=== PATIENT | male | born 1985 | race Caucasian/White ===

== ENCOUNTER 2021-03-15 15:59 | Emergency (ER) | payer OTHER ==
[~2021-03-15] VITALS: Ht 182.9 cm; Wt 74.8 kg
[~2021-03-15 15:59] MED LIST: ASPI325 PO; Flomax0.4 MG PO; HYDACE5 PO; IBUP400 PO; IBUP600 PO; KETO10 PO; META800 PO; NAPR220 PO; Naprosyn500 MG PO; Norco 5-325 Ta1 EACH PO; Percocet 10-321 EACH PO; Veetids 500500 MG PO
[2021-03-15] MEDS ORDERED: CYCL10 PO (16:26)
== END 2021-03-15 16:45 | disposition home or self-care (01) ==
LOC: ER 15:59
DX: S39.012A Strain of muscle, fascia and tendon of lower back, initial encounter (principal); F17.200 Nicotine dependence, unspecified, uncomplicated; Z88.5 Allergy status to narcotic agent; Z88.1 Allergy status to other antibiotic agents; Z91.013 Allergy to seafood; Z91.048 Other nonmedicinal substance allergy status; X50.0XXA Overexertion from strenuous movement or load, initial encounter
CPT/HCPCS: 96372; 99283-25; J1885

== ENCOUNTER 2023-04-09 11:14 | Day surgery (SDC) | payer OTHER ==
[~2023-04-09] VITALS: Ht 182.9 cm; Wt 70.6 kg
[~2023-04-09 11:14] MED LIST changes: +CYCL10 PO
--- NOTE | 2023-04-09 14:09 | NUR ---
04/09/23 1409 Jesu Luna BLOCK COMPLETE IN OR BY CHADWICK RODRIGUEZ CRNA. PATIENT TOLERATED WELL, VSS.
[2023-04-09 14:31] VITALS: BP 113/74
--- NOTE | 2023-04-09 14:57 | NUR ---
04/09/23 1457 Isa Rainey PT STATES PAIN IS TOLERABLE AND DENIES NAUSEA. PT STATES NO FURTHER QUESTIONS. IV DC'D WNL, CATH INTACT. PT TOLERATED IV DC WELL; SITE WRAPPED IN COBAN
== END 2023-04-09 14:58 | disposition home or self-care (01) ==
LOC: ORSCSDS 11:14
PROVIDERS: Orthopaedic Surgery
PROC: 01N50ZZ Release Median Nerve, Open Approach (ICD-10-PCS; principal; 2023-04-09 12:30)
DX: G56.03 Carpal tunnel syndrome, bilateral upper limbs (principal); Z87.891 Personal history of nicotine dependence
CPT/HCPCS: J0690; J2250; J3010; J7120

== ENCOUNTER 2023-07-02 12:03 | Day surgery (SDC) | payer OTHER ==
[~2023-07-02] VITALS: Ht 182.9 cm; Wt 69.9 kg
[~2023-07-02 12:03] MED LIST changes: +Lidocaine HCl/Pf 1% 5 ML VIAL ONE
[2023-07-02] MEDS ORDERED: Lactated Ringer's 1,000 ML IV ONE ×2 (12:56→14:03)
[2023-07-02] MEDS ORDERED: propofoL 50 ML IV ONE (13:21)
[2023-07-02] MEDS ORDERED: Midazolam HCl 1MG / ML 2ML Vial ONE (13:49)
[2023-07-02] MEDS ORDERED: Acetaminophen 500 MG Tab ONE (13:49)
[2023-07-02] MEDS ORDERED: CeFAZolin Sodium 2,000 MG VIAL ONE (14:02)
[2023-07-02] MEDS ORDERED: propofoL 20 ML IV ONE (14:03)
[2023-07-02] MEDS ORDERED: NS 50 ML IV ONE (14:03)
[2023-07-02] MEDS ORDERED: FAT EMULSION 20% IV ONE (14:16)
--- NOTE | 2023-07-02 14:28 | NUR ---
07/02/23 1428 Jesu Luna COMPLETE IN OR BY DR AMBRIZ. SITE CHECK, VSS.
[2023-07-02 15:01] VITALS: BP 111/81
== END 2023-07-02 15:13 | disposition home or self-care (01) ==
LOC: ORSCSDS 12:03
PROVIDERS: Orthopaedic Surgery
PROC: 01N50ZZ Release Median Nerve, Open Approach (ICD-10-PCS; principal; 2023-07-02 13:30)
DX: G56.02 Carpal tunnel syndrome, left upper limb (principal); Z87.891 Personal history of nicotine dependence
CPT/HCPCS: A9270; J0690; J2001; J2250; J2704; J7120

== ENCOUNTER 2024-05-18 15:26 | Emergency (ER) | payer OTHER ==
[~2024-05-18] VITALS: Ht 182.9 cm; Wt 72.6 kg
[~2024-05-18 15:26] MED LIST changes: -Lidocaine HCl/Pf 1% 5 ML VIAL ONE
[2024-05-18] MEDS ORDERED: PANT40 PO (15:45)
[2024-05-18 16:02] LABS: BASOPHILS ABSOLUTE AUTO 0.11 K/mm3 (0.00-0.23); BASOPHILS PERCENT AUTO 1 % (0-2); EOSINOPHILS ABSOLUTE AUTO 0.35 K/mm3 (0.00-0.68); EOSINOPHILS PERCENT AUTO 2 % (0-6); Hematocrit 44.3 % (37.0-53.0); Hemoglobin 14.5 g/dL (13.5-17.5); IMMATURE GRAN ABSOLUTE AUTO 0.05 K/mm3 (0.00-0.10); IMMATURE GRAN PERCENT AUTO 0 % (0-1); LYMPHOCYTES ABSOLUTE AUTO 2.51 K/mm3 (0.84-5.20); LYMPHOCYTES PERCENT AUTO 14 % (21-46); MONOCYTES ABSOLUTE AUTO 0.62 K/mm3 (0.16-1.47); MONOCYTES PERCENT AUTO 4 % (4-13); Mean Corpuscular HGB 26.8 pg (26.0-34.0); Mean Corpuscular HGB Conc 32.7 g/dL (31.5-36.5); Mean Corpuscular Volume 82 fL (80-100); Mean Platelet Volume 9.3 fL (9.1-12.4); NEUTROPHILS ABSOLUTE AUTO 14.04 K/mm3 (1.96-9.15); NEUTROPHILS PERCENT AUTO 79 % (41-73); Platelet Count 407 K/mm3 (150-400); RDW Coefficient Variation 13.3 % (11.7-14.2); RDW Standard Deviation 39.5 fL (35.1-46.3); Red Blood Cell Count 5.42 M/mm3 (4.30-5.90); White Blood Cell Count 17.68 K/mm3 (4.00-11.30)
[2024-05-18 16:21] LABS: Albumin, Blood 3.3 g/dL (3.4-5.0); Albumin/Globulin Ratio 0.9 (0.8-1.8); Bilirubin, Total 0.4 mg/dL (0.1-1.0); Bun/Creatinine Ratio 10.4 (12.0-20.0); Calcium, Blood 8.9 mg/dL (8.5-10.1); Creatinine, Blood 1.25 mg/dL (0.60-1.20); Globulin, Blood 3.8 g/dL (2.2-4.0); Potassium, Blood 4.1 mmol/L (3.5-5.5); Total Protein, Blood 7.1 g/dL (6.4-8.2)
[2024-05-18 18:26] VITALS: BP 125/86
[2024-05-18] MEDS ORDERED: Lidocaine 2% Viscous Soln 15 ML UDC PO ONE (19:20)
[2024-05-18] MEDS ORDERED: Famotidine 20 MG Tab PO ONE (19:20)
[2024-05-18] MEDS ORDERED: Mag Hydrox/AL Hydrox/Simeth 30 ML UDC PO ONE (19:20)
[2024-05-18] MEDS ORDERED: NS 1,000 ML IV SCH (19:25)
== END 2024-05-18 22:43 | disposition home or self-care (01) ==
LOC: ER 15:26
PROVIDERS: Physician Assistant
DX: R10.10 Upper abdominal pain, unspecified (principal); G89.29 Other chronic pain; Z91.013 Allergy to seafood; Z88.1 Allergy status to other antibiotic agents; Z88.5 Allergy status to narcotic agent; Z88.8 Allergy status to other drugs, medicaments and biological substances; F17.200 Nicotine dependence, unspecified, uncomplicated
CPT/HCPCS: 74176; 76705; 80053; 83605; 83690; 85025; 96360; 96361; 99284-25; A9270; J7030